=== PATIENT | female | born 1975 | race Two or more races ===

== ENCOUNTER 2023-03-23 14:37 | Emergency (ER) | payer BC, SELFPAY ==
--- NOTE | 2023-03-23 15:21 | ED.GENADULT ---
HPI - General Adult General Chief complaint: Allergic Reaction Stated complaint: ALL RXN,LOW ABD PAIN,DIAR,BURNING IN FACE S/P [facility] Time Seen by Provider: 03/23/23 14:42 Source: patient and EMS Mode of arrival: EMS Limitations: no limitations History of Present Illness HPI narrative: 47-year-old female with history of bipolar disorder, gastritis, gastric bypass/gastric band presents with complaints of bilateral hand redness, facial burning associated with nausea, vomiting and explosive diarrhea. Symptoms happened just prior to arrival. They are described as severe. There is no relieving or exacerbating features. She denies shortness of breath, throat closing or difficulty swallowing. She has never had a reaction like this before. She reports having had trimmed prior to this and trimmed the night before. She is unclear whether this is the etiology of her symptoms. EMS responded, found her hemodynamically stable, provide her with Benadryl 50 mg IV. They gave her 100 mL of normal saline. At this time, she is complaining of some suprapubic discomfort. She describes as mild in nature. The pain does not radiate. She denies any urinary frequency, urgency or dysuria. She denies any vaginal bleeding or discharge. Related Data Previous Rx's Medication Instructions Recorded diphenhydramine HCl 25 mg capsule 50 mg PO TID PRN allergic reaction 03/23/23 (Benadryl) #30 caps ondansetron 4 mg disintegrating 4 mg PO Q6H PRN nausea and 03/23/23 tablet vomiting #10 tabs Allergies Allergy/AdvReac Type Severity Reaction Status Date / Time acetaminophen [From Vicodin] Allergy Unknown Unknown Verified 03/23/23 14:52 hydrocodone [From Vicodin] Allergy Unknown Unknown Verified 03/23/23 14:52 NSAIDS (Non-Steroidal AdvReac Intermediate Abdominal Verified 03/23/23 14:52 Anti-Inflamma Pain Review of Systems Review of Systems: CONSTITUTIONAL: Denies weight loss, fever and chills. HEENT: Denies changes in vision and hearing. RESPIRATORY: Denies SOB and cough. CV: Denies palpitations no CP. GI: Denies abdominal pain, nausea, vomiting and diarrhea. : Denies dysuria and urinary frequency. MSK: Denies myalgia and joint pain. SKIN: Denies rash and pruritus. NEUROLOGICAL: Denies headache and syncope. PSYCHIATRIC: Denies recent changes in mood. Denies anxiety and depression. All other ROS are negative unless in HPI [facility] Social History Social History Advance Directives: No Advance Directives Information Provided: No Physical Exam ED Vital Signs: Vital Signs - 24 hr 03/23/23 15:27 Temperature 98 F Pulse Rate 88 Respiratory Rate 16 Blood Pressure 109/85 Pulse Oximetry 98 Oxygen Delivery Method Room Air BMI result Body Mass Index 25.0 GEN: Well developed, no acute distress, alert, oriented HEENT: Normocephalic, atraumatic, normal external ears, nose appears normal, no oropharyngeal edema or exudates Eyes: Normal to appearance Neck: Supple, no lymphadenopathy Respiratory: Talks in complete sentences, no respiratory distress, clear to auscultation bilaterally Cardiovascular: Regular rate and rhythm, no murmurs rubs or gallops Abdomen: Soft, nontender, nondistended, no guarding, no rebound Back: No CVA tenderness Extremities: No clubbing cyanosis or edema Neurologic: No focal neurologic deficits, cranial nerves 2-12 intact, strength is 5/5 bilaterally Skin: No rash Course Course Course Narrative: Patient presents with questionable allergic reaction. Actually sounds more like an adverse reaction to food with nausea, vomiting, diarrhea, facial burning in hand flushing. Patient receive symptomatic relief. Will check routine laboratory analysis. She did have very mild tenderness in suprapubic region without rebound or guarding. Doubt she acute inflammatory process. Suspect UTI. Will order urinalysis. Medications Administered Discontinued Medications Generic Name Dose Route Start Last Admin Trade Name Freq PRN Reason Stop Dose Admin Sodium Chloride 1,000 mls @ 999 mls/hr 03/23/23 15:00 03/23/23 15:43 Ns IV 03/23/23 16:00 999 mls/hr .Q1H1M PATTI Administration Medical Decision Making Medical Decision Making MDM Narrative: Patient presents with nausea, vomiting, diarrhea, facial burning and hand redness. Symptoms were severe. EMS arrived gave her Benadryl 50 mg. Since then she has been somnolent. She has some suprapubic discomfort but no rebound or guarding. She has no left lower quadrant tenderness, no right lower quadrant tenderness. This does not appear to be surgical in nature. Suspect viral, gastroenteritis, IBD, IBS, adverse food reaction. Will provide patient with symptomatic relief. Will re-evaluate patient. Patient does not appear to warrant emergent imaging such as ultrasound or CT scan at this time. Her belly certainly benign. There is no indication of acute severe inflammatory reaction or catastrophic abdominal pathology. [id number] patient with systemic allergic reaction to shrimp likely with GI symptoms and hives improved after Benadryl 50 mg given by the EMS at this time patient asymptomatic will discharge patient home Differential Diagnosis Differential Diagnoses: The differential diagnosis associated with the presentation includes (Adverse food reaction, infectious diarrhea, gastroenteritis, IBD, IBS, viral illness) Admission/Observation Consideration of admission/observation: Escalation of care including admission/observation considered Lab Data MDM Lab Attestation statement: I reviewed the patient's lab results. 03/23/23 15:39 03/23/23 15:39 Labs: Lab Results 03/23/23 03/23/23 03/23/23 Range/Units 15:39 15:39 17:02 WBC 11.0 H (4.8-10.8) X10*3/uL RBC 3.59 L (4.20-5.50) X10*6/uL Hgb 11.8 L (12.0-16.0) g/dl Hct 34.3 L (37.0-47.0) % MCV 95.5 (80.0-98.0) fL MCH 32.9 (27.0-33.0) pg MCHC 34.4 (31.0-35.0) g/dl RDW 12.8 (11.0-16.0) % Plt Count 364 (160-400) X10*3/uL MPV 10.1 (9.4-12.3) fL Immature Gran % (Auto) 0.4 (0.0-0.4) % Neut % (Auto) 83.5 H (45-73) % Lymph % (Auto) 9.3 L (20-40) % [place]ites[place] % (Auto) 5.4 (2-11) % Eos % (Auto) 0.9 (0-4) % Baso % (Auto) 0.5 (0-2) % Lymph # (Auto) 1.0 L (1.2-4.9) X10*3/uL Whites[place] # (Auto) 0.6 (0.1-1.2) X10*3/uL Eos # (Auto) 0.1 (0.0-0.4) X10*3/uL Baso # (Auto) 0.1 (0.0-0.2) X10*3/uL Abs Immat Gran (auto) 0.04 H (0.00-0.03) X10*3/uL Absolute Neuts (auto) 9.2 H (2.0-8.3) x10*3/uL Absolute Nucleated RBC 0.000 (0.0-0.012) X10*3/uL Nucleated RBC % (auto) 0.0 (0.0-0.2) /100WBC Sodium 136 (135-145) mmol/L Potassium 3.7 (3.3-5.1) mmol/L Chloride 103 (96-108) mmol/L Carbon Dioxide 25 (22-29) mmol/L Anion Gap 12 (12-20) BUN 17 H (9-16) mg/dL Creatinine 0.89 (0.5-1.4) mg/dL Estim Creat Clear Calc 73.1 Estimated GFR > 60 Random Glucose 85 (60-115) mg/dL Calcium 8.8 (8.4-10.2) mg/dL Total Bilirubin 0.4 (0.0-1.0) mg/dL AST 20 (5-31) U/L ALT 13 (0-31) U/L Alkaline Phosphatase 95 (39-117) U/L Total Protein 6.0 L (6.5-8.0) g/dL Albumin 3.5 (3.5-5.0) g/dL Lipase 40 (8-78) U/L Urine Color Yellow Urine Appearance Cloudy Urine pH 5.5 (5.0-9.0) Ur Specific [place] 1.020 (1.005-1.025) Urine Protein Trace (Neg-Trace) mg/dL Urine Glucose (UA) Negative (Negative) mg/dL Urine Ketones Trace (Negative) mg/dL Urine Blood Negative (Negative) Urine Nitrite Negative (Negative) Ur Leukocyte Esterase Negative (Negative) Independent Historian Clinical information obtained from an independent historian. History obtained from or confirmed by: EMS Tests considered The following testing was considered but not selected: Ultrasound, CT scan abdomen Prescription Management I considered prescription management with: Pain Medication and Antibiotic Discharge Plan Discharge Clinical Impression: Allergic reaction Patient Disposition: Home, Self-Care Instructions: General Allergic Reaction (ED) Additional Instructions: Likely had allergic reaction to seafood Benadryl 2 tablets every 6 hours as needed Report to the ER if gets worse/increased shortness of breath/Hives Prescriptions: New ondansetron 4 mg tablet,disintegrating 4 mg PO Q6H PRN (Reason: nausea and vomiting) Qty: 10 0RF diphenhydramine HCl [Benadryl] 25 mg capsule 50 mg PO TID PRN (Reason: allergic reaction) Qty: 30 0RF Referrals: [facility] [place] [Provider Group] Stand Alone Forms: Work/School Release
[2023-03-23 15:27] VITALS: BP 109/85; PULSE 88; RESP 16; TEMP 36.6; O2SAT 98; BMI 25.0
[2023-03-23] MEDS: 0.9 % Sodium Chloride 1,000 ML 999 ML IV (15:43)
[2023-03-23 15:59] LABS: MANUAL DIFF FLAG NO
[2023-03-23 16:01] LABS: Basophils Absolute Auto 0.1 X10*3/uL (0.0-0.2); Basophils Percent Auto 0.5 % (0-2); Eosinophils Absolute Auto 0.1 X10*3/uL (0.0-0.4); Eosinophils Percent Auto 0.9 % (0-4); Hematocrit 34.3 % (37.0-47.0); Hemoglobin 11.8 g/dl (12.0-16.0); Imm Gran Abs Auto 0.04 X10*3/uL (0.00-0.03); Imm Gran Pct Auto 0.4 % (0.0-0.4); Lymphocytes Percent Auto 9.3 % (20-40); Mean Corpuscular HGB Conc 34.4 g/dl (31.0-35.0); Mean Corpuscular Hemoglobin 32.9 pg (27.0-33.0); Mean Corpuscular Volume 95.5 fL (80.0-98.0); Mean Platelet Volume 10.1 fL (9.4-12.3); Monocytes Absolute Auto 0.6 X10*3/uL (0.1-1.2); Monocytes Percent Auto 5.4 % (2-11); Neutrophils Absolute Auto 9.2 x10*3/uL (2.0-8.3); Neutrophils Percent Auto 83.5 % (45-73); Platelet Count 364 X10*3/uL (160-400); Red Blood Count 3.59 X10*6/uL (4.20-5.50); Red Cell Distribution Width 12.8 % (11.0-16.0)
[2023-03-23 16:18] LABS: Alanine Aminotransferase 13 U/L (0-31); Albumin Level 3.5 g/dL (3.5-5.0); Alkaline Phosphatase 95 U/L (39-117); Anion Gap 12 (12-20); Aspartate Amino Transferase 20 U/L (5-31); Bilirubin Total 0.4 mg/dL (0.0-1.0); Blood Urea Nitrogen 17 mg/dL (9-16); Calcium 8.8 mg/dL (8.4-10.2); Carbon Dioxide 25 mmol/L (22-29); Chloride 103 mmol/L (96-108); Creatinine Clr Calc Pharmacy 73.1; Estimated Glomerular Filt Rate > 60; Glucose Random 85 mg/dL (60-115); Lipase 40 U/L (8-78); Potassium 3.7 mmol/L (3.3-5.1); Sodium 136 mmol/L (135-145)
--- NOTE | 2023-03-23 16:52 | PC.NURSE ---
no change in pt presentation, pt in no distress, awaiting ua.
[2023-03-23 17:19] LABS: Appearance Urine Cloudy; Color Urine Yellow; Glucose Urine UA Negative (Negative); Leukocyte Esterase Urine Negative (Negative); Nitrite Urine Negative (Negative); PH 5.5 (5.0-9.0); Urine Blood Negative (Negative); Urine Ketones Trace mg/dL (Negative); Urine Protein Trace mg/dL (Neg-Trace)
[2023-03-23 17:53] VITALS: BP 111/64; PULSE 72; RESP 16; O2SAT 98
== END 2023-03-23 17:56 | disposition home or self-care (01) ==
PROVIDERS: Emergency Provider Emergency Medicine
DX: L29.9 Pruritus, unspecified (principal); T78.1XXA Other adverse food reactions, not elsewhere classified, initial encounter; R11.2 Nausea with vomiting, unspecified; R19.7 Diarrhea, unspecified; X58.XXXA Exposure to other specified factors, initial encounter
CPT/HCPCS: 36415; 80053; 81003; 83690; 85025; 99283